=== PATIENT | male | born 1940 | race Caucasian/White ===

== ENCOUNTER 2017-12-06 11:06 | Emergency (ER) | payer BC ==
[2017-12-06] MEDS ORDERED: NITROGLYCERIN 0.4MG SL TABLET #25 BTL SL ONE (11:11)
[2017-12-06] MEDS ORDERED: NITROGLYCERIN/D5W 50 MG/250 ML ML IV SCH (11:15)
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
[2017-12-06] MEDS ORDERED: IPRATROPIUM/ALBUTEROL (0.5MG/3MG) NEB INH ONE (11:25)
[2017-12-06 11:26] LABS: BASO % 0.5 % (0-6); EOS % 2.1 % (0-6); GRAN % 77.1 % (47-80); HEMATOCRIT 50.1 % (42.0-52.0); HEMOGLOBIN 16.9 gm/dl (14.0-18.0); LYMPH % 10.4 % (16-45); MEAN CELL VOLUME 81.3 fl (81-97); MEAN CORPUSCULAR HEMOGLOBIN 27.4 pg (27-33); MEAN CORPUSCULAR HGB CONC 33.7 g/dl (32-36); MEAN PLATELET VOLUME 11.6 fl (7.4-10.4); MONO % 9.9 % (0-9); PLATELET COUNT 201 K/uL (130-400); RED BLOOD COUNT 6.16 M/uL (4.40-5.70); RED CELL DISTRIBUTION WIDTH 14.8 % (11.5-14.5); WHITE BLOOD COUNT W/O DIFF 10.7 K/uL (4.2-12.2)
[2017-12-06 11:38] LABS: INR 1.1; PARTIAL THROMBOPLASTIN TIME 39.9 SECONDS (24.5-39.1); PROTHROMBIN TIME (PATIENT) 11.3 SECONDS (9.5-12.1)
[2017-12-06 11:39] LABS: BLOOD UREA NITROGEN 12 mg/dL (8-23); CREATININE 0.8 mg/dL (0.7-1.2); EST GLOMERULAR FILTRATION RATE > 60 mL/min
[2017-12-06 11:40] LABS: TOTAL PROTEIN 7.9 g/dL (6.6-8.7)
[2017-12-06 11:42] LABS: GLUCOSE,RANDOM 103 mg/dL (74-109)
[2017-12-06 11:45] LABS: ALB/GLOB RATIO 1.4 (1.1-1.8); ALBUMIN 4.6 g/dL (4.0-5.0); ALKALINE PHOSPHATASE 90 U/L (40-129); ALT/SGPT 39 U/L (<41); AST/SGOT 31 U/L (10.0-50.0)
[2017-12-06] MEDS ORDERED: FUROSEMIDE IV 40MG/4ML VIAL IVP ONE (11:54)
[2017-12-06] MEDS ORDERED: CEFTRIAXONE SODIUM 1 GM in 0.9 % SODIUM CHLORIDE 100ML 100 ML IVPB ONE (12:37)
--- NOTE | 2017-12-07 21:00 | RADIOLOGY REPORT ---
EXAM: CHEST 1 VIEW HISTORY: DYSPNEA. FINDINGS: Previous median sternotomy and CABG. Heart is not enlarged. Aortic atherosclerosis. Within the lungs, there are minimal bilateral streaky opacities, which could relate to scattered atelectasis or developing infiltrate possible. No focal consolidation or pleural effusion. Asymmetric right apical pleural scarring. Chronic-appearing bilateral mid clavicular fractures. Chronic upper left posterior rib fractures. Previous surgical change right humeral head, where suture anchors are noted. IMPRESSION: 1. PREVIOUS MEDIAN STERNOTOMY AND CABG. 2. STREAKY OPACITIES WITHIN THE LUNGS, WHICH COULD RELATE TO ATELECTASIS OR DEVELOPING INFILTRATE. UNDERLYING SCARRING ALSO POSSIBLE. PREVIOUS IMAGES UNAVAILABLE TO DOCUMENT STABILITY. 3. ASYMMETRIC RIGHT APICAL PLEURAL THICKENING. 4. REMOTE OSSEOUS TRAUMATIC CHANGES. JOB NUMBER: [id number] [facility]
== END 2017-12-06 13:52 | disposition short-term general hospital (02) ==
LOC: ER 11:06
DX: I50.9 Heart failure, unspecified (principal); R06.00 Dyspnea, unspecified; R05 Cough; R60.0 Localized edema; I25.10 Atherosclerotic heart disease of native coronary artery without angina pectoris; I10 Essential (primary) hypertension; F03.90 Unspecified dementia, unspecified severity, without behavioral disturbance, psychotic disturbance, mood disturbance, and anxiety; Z87.891 Personal history of nicotine dependence; Z95.1 Presence of aortocoronary bypass graft; Z87.820 Personal history of traumatic brain injury
CPT/HCPCS: 71045; 80053; 83880; 84484; 85025; 85610; 85730; 93005; 93010; 94640; 96365; 96366; 96368; 96375; 99285; J1940

== ENCOUNTER 2018-11-13 11:02 | Emergency (ER) | payer BC ==
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
[2018-11-13] MEDS ORDERED: BACLOFEN 10 MG TABLET PO STA (11:34)
[2018-11-13] MEDS ORDERED: METOCLOPRAMIDE 10 MG TABLET PO ONE (11:44)
[2018-11-13 12:03] LABS: HEMOGLOBIN 15.9 gm/dl (14.0-18.0); MEAN CELL VOLUME 80.8 fl (81-97); MEAN CORPUSCULAR HGB CONC 33.1 g/dl (32-36); MEAN PLATELET VOLUME 11.6 fl (7.4-10.4); PLATELET COUNT 188 K/uL (130-400); RED BLOOD COUNT 5.94 M/uL (4.40-5.70); RED CELL DISTRIBUTION WIDTH 14.7 % (11.5-14.5); WHITE BLOOD COUNT W/O DIFF 10.9 K/uL (4.2-12.2)
[2018-11-13 12:10] LABS: MEAN CORPUSCULAR HEMOGLOBIN 26.7 pg (27-33)
[2018-11-13 12:20] LABS: BLOOD UREA NITROGEN 16 mg/dL (8-23)
[2018-11-13 12:21] LABS: CREATININE 0.9 mg/dL (0.7-1.2); EST GLOMERULAR FILTRATION RATE > 60 mL/min; TOTAL PROTEIN 7.5 g/dL (6.6-8.7)
[2018-11-13 12:23] LABS: GLUCOSE,RANDOM 120 mg/dL (74-109)
[2018-11-13 12:26] LABS: ALB/GLOB RATIO 1.3 (1.1-1.8); ALBUMIN 4.2 g/dL (4.0-5.0); ALKALINE PHOSPHATASE 74 U/L (40-129); ALT/SGPT 31 U/L (<41); AST/SGOT 37 U/L (10.0-50.0)
[2018-11-13] MEDS ORDERED: MAGNESIUM OXIDE 400 MG TABLET PO ONE (12:29)
--- NOTE | 2018-11-17 08:51 | RADIOLOGY REPORT ---
DATE OF SERVICE: 11/13/2018. TWO-VIEW CHEST CLINICAL HISTORY: Difficulty breathing. TECHNIQUE: Frontal and lateral views of the chest were performed. FINDINGS: Heart size normal. There is left pleural thickening. No infiltrate or pleural effusion. Lungs are hyperinflated. Multiple rib deformities. IMPRESSION: 1. Left pleural thickening. 2. Multiple rib deformities. 3. Hyperinflated lungs. MTDD
== END 2018-11-13 12:40 | disposition home or self-care (01) ==
LOC: ER 11:02
DX: R06.6 Hiccough (principal); E83.42 Hypomagnesemia; I10 Essential (primary) hypertension; Z87.891 Personal history of nicotine dependence
CPT/HCPCS: 71046; 80053; 83735; 85027; 99283